=== PATIENT | male | born 1970 ===

== ENCOUNTER 2019-08-11 16:45 | Inpatient (IN) | payer OTHER ==
[~2019-08-11] VITALS: Ht 170.2 cm; Wt 56.2 kg
[~2019-08-11 16:45] MED LIST: CLONAZEPAM1 MG; HUMIRA20 MG/0.4 SUBCUTANEO; ULTRACET
== END 2019-08-15 11:48 | disposition home or self-care (01) | DRG 708 ==
LOC: EDBD → SURG 08-13 05:50 → O/R 08-13 05:50 → RECOVERY 08-13 07:00 → SURG 08-13 13:21 → RECOVERY 08-13 15:41 → SURG 08-15 11:48
PROVIDERS: ADMIT Urology
PROC: 0VT00ZZ Resection of Prostate, Open Approach (ICD-10-PCS; 2019-08-13)
PROC: 0VT30ZZ Resection of Bilateral Seminal Vesicles, Open Approach (ICD-10-PCS; 2019-08-13)
PROC: 07TC0ZZ Resection of Pelvis Lymphatic, Open Approach (ICD-10-PCS; principal; 2019-08-13 07:00)
DX: C61 Malignant neoplasm of prostate (principal)